=== PATIENT | female | born 1980 | race Caucasian/White ===

== ENCOUNTER 2021-07-11 16:44 | Emergency (ER) | payer MEDICARE, MEDICAID, SELFPAY ==
--- NOTE | 2021-07-11 16:49 | ED_ITS ---
HPI - Overdose General Chief Complaint: Overdose Stated Complaint: HEROIN USE,NODDING OFF,NO NARCAN GIVEN PER EMS Time Seen by Provider: 07/11/21 16:49 Source: patient and EMS Mode of arrival: EMS Limitations: no limitations History of Present Illness HPI Narrative: This is a 41-year-old female past medical history significant for opiates disorder presenting to the emergency department with an accidental overdose, 911 was called by a bystander when they noted patient was dozing off on the side of the road. According to patient and she used 3 bags of heroin today. She tells me that she got out of [place] in [place] last night, she tells me she has been clean for a month. He is currently on methadone however she missed her dose this morning. She tells me she was hanging out with a friend who left her on the streets last night. She tells me that she is currently homeless and that her boyfriend a month and a half ago so she has been depressed. I offered her resources and she tells me that she really does not want any. She denies any medical complaints at this time other than nausea and vomiting. She did not receive Narcan prior to her arrival. complaint: accidental overdose Onset (ago): minute(s) (30) Intent: wanted to escape How Overdose Was Discovered: other (Bystander called 911.) Context: Intentional Overdose: relationship problems (Boyfriend about a month and half ago.), financial issues (Patient tells me she is in a rough economic situation and living on the streets homeless.) and drug/ETOH problems Context: Accidental Overdose: wanted to get high Associated symptoms: depression Treatments Prior to Arrival: none Related Data Previous Rx's Medication Instructions Recorded naloxone 4 mg/actuation nasal 4 mg INTRANASAL Q2M PRN #2 ea 07/11/21 spray (Narcan) Allergies Allergy/AdvReac Type Severity Reaction Status Date / Time No Known Allergies Allergy Verified 07/11/21 16:58 Review of Systems Review of Systems: Constitutional : No Fever, No Chills ENT/Mouth : No sore throat, No Rhinorrhea Eyes: No Eye Pain, No Swelling, No Redness Cardiovascular : No Chest Pain, No SOB Respiratory : No Cough, No Sputum Gastrointestinal : No Nausea, No Vomiting, No Diarrhea, No abdominal Pain Genitourinary : No Dysuria, No Hematuria Musculoskeletal : No joint pain, No Myalgias, No Joint Swelling Skin : No Skin Lesions, No rash Neuro : No Weakness, No Numbness Psych : No Anxiety, No Depression, No SI/HI/AH/VH All other systems reviewed and are negative Yes all other systems are reviewed and are negative FOR[facility]LY [facility] Past Medical History Attestation statement: The following information was validated with the patient. Source: old records reviewed and nursing notes reviewed Medical History (Updated 07/11/21 @ 17:39 by STEFFANY Borjas) Anxiety Depression Dissociative disorder TBI (traumatic brain injury) Social History Social History Advance Directives: No Advance Directives Information Provided: No Physical Exam Vital Signs: Vital Signs: Last Vital Signs Temp 97.9 F 07/11/21 20:42 Pulse 74 07/11/21 20:42 Resp 14 07/11/21 20:42 BP 97/56 L 07/11/21 20:42 Pulse Ox 96 07/11/21 20:42 BMI result Body Mass Index 23.0 Appearance: Alert.? Oriented X3.? No acute distress.? Head: Normocephalic, atraumatic, no step-offs or deformities Eyes: Pupils equal, round and reactive to light.? ENT: Pharynx normal.? Neck: Normal inspection.? Neck supple.? CVS: Normal heart rate and rhythm.? Pulses normal.? Respiratory: No respiratory distress.? Breath sounds normal.? Abdomen: Soft and nontender.? Skin: Skin warm and dry.? Normal skin color.? Normal skin turgor.? Extremities: No lower extremity edema.? No calf ttp. 5/5 strength to bilateral upper and lower extremities Back: No midline tenderness, no C-spine tenderness, full range of motion, no CVA tenderness bilaterally Neuro: Oriented X 3.? No motor deficit.? No sensory deficit. CN 2-12 intact Course Reevaluation(s) Reevaluation #1: Offered patient resources such as SUDS and she is refusing, she is refusing. Time: 18:16 Reevaluation #2: Patient is saturating well on room air. No medical complaints. At this time she is declining to speak to care team and declining detox. She tells me she just wants to be discharged. Comfortable with discharge home with PCP follow- up. Time: 21:44 MDM - Overdose MDM Narrative Medical decision making narrative: [age] yo f pmhx opiate use disorder recently dc from a one month long program in [place] presents with an accidental heroin overdose after using 3 bags. She tells me before the program she was using 3-4 bundles a day. Tells me she is depressed. Denies SI and HI. Does not want detox or help. Physical examination benign Plan at this time is [facility], COVID and cardiac monitoring. Medical Records Attestation: I reviewed the patient's medical records. Lab Data Attestation: I reviewed the patient's lab results. Labs: Lab Results 07/11/21 Range/Units 17:37 COVID-19 ([facility]) Negative (Negative) COVID-19 Clin Com See Note Critical Care Time Critical Care Time Critical Care Time: No Discharge Plan Discharge Clinical Impression: Drug overdose, Heroin abuse Patient Disposition: Home, Self-Care Instructions: Adult Overdose (ED), Opioid Use Disorder (ED) Additional Instructions: Take your medications as prescribed. Follow-up with your primary care provider this week. Return to the emergency department with new or worsening symptoms. In case of emergency call 911 I offered you detox however you refused. You also told me you did not want to speak to anyone. I have sent Narcan to your pharmacy. Please keep this on you at all times as this can save lives. You have been instructed on proper use. Prescriptions: New naloxone [Narcan] 4 mg/actuation spray,non-aerosol 4 mg intranasal Q2M PRN (Reason: opioid overdose) Qty: 2 0RF Rx Instructions: spray 1 dose into ONE nostril; alternate nostrils w each dose until help arrives Referrals: Physician,None [Primary Care Provider] - 2 days
[2021-07-11 16:53] VITALS: BP 150/90; PULSE 112; O2SAT 97
[2021-07-11 17:00] VITALS: BP 116/67; PULSE 85; RESP 16; TEMP 36.4; O2SAT 96; BMI 23.0
[2021-07-11 17:56] LABS: COVID-19 Test Negative (Negative); IDNOW Serial# 16C4AD1C
[2021-07-11 20:42] VITALS: BP 97/56; PULSE 74; RESP 14; TEMP 36.6; O2SAT 96
--- NOTE | 2021-07-11 22:33 | PC.NURSE ---
I assumed nursing care of this pt at 1900. Since that time the pt has been resting in bed, alert, oriented x 3, wakes to verbal simuli when asleep. She has taken Po food and fluids without difficulty. At time of D/C she was discouraged that she was being asked to leave the department, stated this is why I didnt want to come here I know I have nowhere to go . p was offered detox and offered a care team consult to speak to about her drug use but she has refused. She was provided with dry, clean clothes and was asited to security where her belongings were returned to her from dec. SHe ambulated out of the department independently and with steady gait.
--- NOTE | 2021-07-12 10:09 | MHC.CARE ---
Pt discharged prior to SUDE being completed.
== END 2021-07-11 22:31 | disposition home or self-care (01) ==
PROVIDERS: Physician Assistant; Emergency Provider Emergency Medicine
DX: T40.1X1A Poisoning by heroin, accidental (unintentional), initial encounter (principal); R40.0 Somnolence; Y92.414 Local residential or business street as the place of occurrence of the external cause; F11.20 Opioid dependence, uncomplicated; F32.A Depression, unspecified; F44.9 Dissociative and conversion disorder, unspecified; F41.9 Anxiety disorder, unspecified; Z20.822 Contact with and (suspected) exposure to COVID-19
CPT/HCPCS: 87635; 99283; 99284